=== PATIENT | female | born 1950 | race Caucasian/White ===

== ENCOUNTER → 2023-06-06 | Day surgery (SDC) | payer OTHER | END | disposition home or self-care (01) | LOC: JMAMMO-SUR 10:36 | PROVIDERS: ATTEND Surgery | PROC: BH01ZZZ Plain Radiography of Left Breast (ICD-10-PCS; principal; 2023-06-06) | DX: C50.912 Malignant neoplasm of unspecified site of left female breast (principal) | CPT/HCPCS: 19281; A4648 ==

== ENCOUNTER 2023-06-08 04:28 | Day surgery (SDC) | payer OTHER ==
[2023-06-08 11:06] VITALS: BMI 14.6
[2023-06-08] MEDS ORDERED: PROPOFOL 40 ML ONE (11:17)
[2023-06-08] MEDS ORDERED: ISOSULFAN BLUE 50 MG/5 ML VIAL SQ ONE ×2 (12:09→13:31)
[2023-06-08] MEDS ORDERED: LIDOCAINE HCL 1%, 10 MG/ML (20ML VIAL) ONE ×2 (12:09→13:30)
[2023-06-08] MEDS ORDERED: ONDANSETRON 4 MG/2 ML VIAL IVPUSH PRN (12:34)
[2023-06-08] MEDS ORDERED: LACTATED RINGERS SOLUTION 1,000 ML IV SCH (12:45)
[2023-06-08] MEDS ORDERED: LIDOCAINE HCL 2% 100 MG/5 ML DISP.SYRIN ONE (12:54)
[2023-06-08] MEDS ORDERED: MIDAZOLAM HCL 2 MG/2 ML SINGLE DOSE VIAL ONE (12:54)
[2023-06-08] MEDS: ceFAZolin SODIUM 1 GM VIAL IVPB ONE ×3 (12:55→13:05)
[2023-06-08] MEDS: LIDOCAINE HCL 1%, 10 MG/ML (50 mL VIAL) INF ONE ×3 (12:57→13:22)
[2023-06-08] MEDS ORDERED: ONDANSETRON 4 MG/2 ML VIAL ONE ×2 (13:02→13:53)
[2023-06-08] MEDS ORDERED: DEXAMETHASONE SOD PHOSPHATE 4 MG/1 ML VIAL ONE (13:02)
[2023-06-08] MEDS ORDERED: ceFAZolin SODIUM 1 GM VIAL ONE (13:02)
[2023-06-08] MEDS ORDERED: PHENYLEPHRINE HCL 10 MG/1 ML SINGLE DOSE VIAL ONE (13:46)
[2023-06-08] MEDS ORDERED: KETOROLAC TROMETHAMINE 30 MG/1 ML VIAL ONE (13:53)
[2023-06-08 15:34] VITALS: TEMP 97.3
[2023-06-08] MEDS: oxyCODONE HCL 5 MG TABLET PO PRN (15:48)
[2023-06-08] MEDS ORDERED: oxyCODONE HCL 5 MG TABLET ONE (15:50)
[2023-06-08 16:02] VITALS: BP 109/62; PULSE 70; RESP 20
== END 2023-06-08 16:26 | disposition home or self-care (01) ==
LOC: JASU-SURG 04:28
PROVIDERS: ATTEND Surgery
PROC: 0HBU0ZZ Excision of Left Breast, Open Approach (ICD-10-PCS; principal; 2023-06-08 13:00)
PROC: 0HBX0ZX Excision of Left Nipple, Open Approach, Diagnostic (ICD-10-PCS; 2023-06-08 13:00)
DX: C50.012 Malignant neoplasm of nipple and areola, left female breast (principal)
CPT/HCPCS: 76098-TC-FY; 78195-TC; 88305-TC; 88307-TC; 88342-TC; 94760; A9541